=== PATIENT | male | born 1975 ===

== ENCOUNTER 2017-08-13 02:55 | Inpatient (IN) | payer MEDICAID ==
[2017-08-13] MEDS ORDERED: Sodium Chloride 0.9% 1,000 ML IV STA (03:17)
[2017-08-13 03:29] LABS: BASO # 0.1 K/uL (0.0-0.2); BASO % 0.5 % (0.0-2.0); HEMOGLOBIN 15.8 g/dL (12.0-18.0); LYMPH # 1.5 K/uL (1.0-4.3); LYMPH % 12.9 % (20.0-40.0); MEAN CELL VOLUME 86.3 fl (80.0-94.0); MEAN CORPUSCULAR HEMOGLOBIN 30.7 pg (27.0-31.0); MEAN CORPUSCULAR HGB CONC 35.6 g/dL (33.0-37.0); MEAN PLATELET VOLUME 9.4 fl (7.2-11.7); MONO # 0.4 K/uL (0.0-0.8); MONO % 3.4 % (0.0-10.0); NEUT # 9.9 K/uL (1.8-7.0); NEUT % 83.2 % (50.0-75.0); NRBC % 0.1 % (0.0-0.0); RBC 5.14 Mil/uL (4.40-5.90); RED CELL DISTRIBUTION WIDTH 14.7 % (11.5-14.5); WHITE BLOOD COUNT 11.8 K/uL (4.8-10.8)
[2017-08-13 03:38] LABS: BLOOD UREA NITROGEN 11 mg/dl (9-20); CALCIUM 9.7 mg/dL (8.4-10.2); GFR AFRICAN-AMERICAN > 60; GFR NON-AFRICAN AMERICAN > 60
--- NOTE | 2017-08-13 04:39 | ED PDOC ---
HPI: Chest Pain Time Seen by Provider: 08/13/17 03:13 Chief Complaint (Nursing): Chest Pain Chief Complaint (Provider): Chest Pain History Per: Patient (Chest Pain) History/Exam Limitations: intoxication Onset/Duration Of Symptoms: Days (x5) Current Symptoms Are (Timing): Still Present Additional Complaint(s): 41 y/o male with a PMHx of bipolar disorder, HTN, CAD, and multiple stents placed by bank worker presents to the ED complaining of chest pain and palpitations, onset five days ago. Patient admits to drinking a lot of alcohol every day. Patient states he may have done drugs but is not admitting. Patient additionally reports of difficulty breathing at times associated with chest pain and palpitations. Patient states he has also been depressed for a long time. Denies swelling, fever, cough, suicidal ideation, and homicidal ideation. PMD: None Provided Slope Hoist Operator: Dr. Armstrong from [facility], [facility] Past Medical History Reviewed: Historical Data, Nursing Documentation, Vital Signs Vital Signs: Last Vital Signs Temp 98.2 F 08/13/17 17:04 Pulse 140 H 08/13/17 20:38 Resp 16 08/13/17 17:04 BP 145/80 08/13/17 17:04 Pulse Ox 95 08/13/17 20:38 - Medical History PMH: Bipolar Disorder, CAD, Depression, HTN - Surgical History Surgical History: Coronary Stent (x7) - Family History Family History: States: No Known Family Hx - Social History Current smoker - smoking cessation education provided: Yes Alcohol: > 2 Drinks/Day - Home Medications Home Medications: Ambulatory Orders Medication Instructions Recorded Aspirin [Ecotrin] 81 mg PO DAILY 08/13/17 Atorvastatin [Lipitor] 80 mg PO DAILY 08/13/17 Clopidogrel [Plavix] 75 mg PO DAILY 08/13/17 Lisinopril [Zestril] 20 mg PO DAILY 08/13/17 - Allergies Allergies/Adverse Reactions: Allergies Allergy/AdvReac Type Severity Reaction Status Date / Time Penicillins Allergy RASH Verified 08/13/17 03:04 PEDRO Risk Score for UA/NSTEMI - PEDRO Risk Score Age > 64: NO 3 or more CAD Risk Factors: NO Known CAD (Stenosis greater than 50%): YES Aspirin use in past 7 days: NO Severe Angina: NO EKG ST changes greater than 0.5mm: NO Positive Cardiac Marker: NO PEDRO Score: 1 Risk %: 5% Wells Criteria for PE - Wells Criteria for Pulmonary Embolism Clinical Signs and Symptoms of DVT: No P.E is #1 Diagnosis, or Equally Likely: Yes Heart Rate >100: No Immobilization at least 3 days;Surgery previous 4 weeks: No Previous, objectively diagnosed PE or DVT: No Hemoptysis: No Malignancy w/treatment within 6 months, or palliative: No Total Score: 1 Review of Systems ROS Statement: Except As Marked, All Systems Reviewed And Found Negative Constitutional: Negative for: Fever Cardiovascular: Positive for: Chest Pain, Palpitations Respiratory: Positive for: Shortness of Breath. Negative for: Cough Physical Exam - Reviewed Nursing Documentation Reviewed: Yes Vital Signs Reviewed: Yes - Physical Exam Appears: Positive for: In Acute Distress (anxious, agitated at times) Head Exam: Positive for: ATRAUMATIC, NORMOCEPHALIC Skin: Positive for: Normal Color, Warm, Dry Eye Exam: Positive for: EOMI, PERRL, Other (pupils dilated bilaterally) ENT: Positive for: Normal ENT Inspection Neck: Positive for: Normal Cardiovascular/Chest: Positive for: Regular Rate, Rhythm, Tachycardia. Negative for: Murmur Respiratory: Positive for: Normal Breath Sounds. Negative for: Respiratory Distress Gastrointestinal/Abdominal: Positive for: Normal Exam, Soft. Negative for: Tenderness Back: Positive for: Normal Inspection. Negative for: L CVA Tenderness, R CVA Tenderness, Vertebral Tenderness Extremity: Positive for: Normal ROM. Negative for: Pedal Edema, Deformity, Swelling Neurologic/Psych: Positive for: Alert, Oriented. Negative for: Motor/Sensory Deficits - Laboratory Results Result Diagrams: 08/13/17 03:15 08/13/17 03:15 - ECG ECG Rhythm: Positive for: Normal QRS, Normal ST Segment, Sinus Tachycardia Rate: 140 O2 Sat by Pulse Oximetry: 95 (RA) Pulse Ox Interpretation: Normal Medical Decision Making Medical Decision Making: Time: 033 Impression: chest pain and palpitations with tachycardia Differentials include but not limited to SVT, sinus tachycardia, ACS, drug abuse , etoh abuse, intoxication, and acute psychosis. Plan: -- EKG -- Alcohol Serum -- BMP -- Urine Drug Screen -- Troponin I -- CBC with differentials -- CXR One View -- Ativan 1 mg PO -- Ativan 2 mg IV -- Haldol 5 mg IM -- Sodium Chloride UV 1000 mls/hr -- Clinical Researcher -- IV insertion -- 1:1 Observation Time: 0630 CT ANGIO RESULTS FINDINGS: Pulmonary arteries: Pulmonary artery enhancement is less than 130 Hounsfield unit. Pulmonary embolus cannot be evaluated. Aorta: No acute findings. No thoracic aortic aneurysm. Great vessels of aortic arch: There is a normal-variant aberrant right subclavian artery. Lungs: The visualized portions of major airways are patent. Left lower lobe calcified granuloma. No mass.Possible areas of hazy and hyperlucency. Correlation with patient's clinical data is recommended if the reactive airway disease is clinically suspected. There is asymmetric appearance of bilateral hemithoraces. This could represent anatomic variant. Pleural space: Unremarkable. No significant effusion. No pneumothorax. Heart: Small amount of pericardial fluid. Possible cardiomegaly. Thyroid: Mild prominence of thyroid gland. Bones/joints: No acute fracture. No dislocation. Soft tissues: Unremarkable. Lymph nodes: Unremarkable. No enlarged lymph nodes. Liver: Fatty possible nodular liver. Adrenals: Normal adrenal glands. Stomach and bowel: Nonspecific colonic thickening likely due to under distention versus a nonspecific colitis. IMPRESSION: 1. Pulmonary artery enhancement is less than 130 Hounsfield unit. Pulmonary embolus cannot be evaluated. 2. No active disease. Thank you for allowing us to participate in the care of your patient. Dictated and Authenticated by: Cher Fischer MD 08/13/2017 6:30 AM Eastern Time ([place] & [place]) Scribe Attestation: Documented by Kacy Bee acting as a scribe for Dr. Kamala Sherwood MD. Provider Scribe Attestation: All medical record entries made by the Scribe were at my direction and personally dictated by me. I have reviewed the chart and agree that the record accurately reflects my personal performance of the history, physical exam, medical decision making, and the department course for this patient. I have also personally directed, reviewed, and agree with the discharge instructions and disposition. Disposition - Clinical Impression Clinical Impression: Chest pain, Sinus tachycardia, Psychosis, Cocaine abuse - Patient ED Disposition Is Patient to be Admitted: Yes Discussed With Dr.: John Suero Doctor Will See Patient In The: Hospital Counseled Patient/Family Regarding: Studies Performed, Diagnosis - Disposition Disposition Time: 06:30 Condition: FAIR - Pt Status Changed To: Hospital Disposition Of: Inpatient - Admit Certification Admit to Inpatient:: After my assessment, the patient will require hospitalization for at least two midnights. This is because of the severity of symptoms shown, intensity of services needed, and/or the medical risk in this patient being treated as an outpatient. - POA Present On Arrival: None
[2017-08-13] MEDS ORDERED: Sodium Chloride 0.9% 50 ML IV ONE (05:14)
[2017-08-13] MEDS ORDERED: Iodixanol 320 MG/ML 100 ML BOTTLE IV ONE (05:14)
[2017-08-13 06:32] LABS: VENOUS BLOOD GAS BASE EXCESS -1.5 mmol/L (0.0-2.0); VENOUS BLOOD GAS PCO2 47 mmHg (40-60); VENOUS BLOOD GAS PO2 28 mm/Hg (30-55); VENOUS BLOOD PH 7.33 (7.32-7.43)
[2017-08-13 07:32] LABS: BARBITURATES, UR NEGATIVE (NEGATIVE)
[2017-08-13 07:41] LABS: BENZODIAZEPINES, UR NEGATIVE (NEGATIVE); OPIATES, UR NEGATIVE (NEGATIVE); PHENCYCLIDINE, UR NEGATIVE (NEGATIVE)
--- NOTE | 2017-08-13 10:56 | RAD ---
PROCEDURE: CHEST RADIOGRAPH, 1 VIEW HISTORY: chest pain COMPARISON: Chest radiograph dated 02/06/2010 FINDINGS: LUNGS: Clear. PLEURA: No pneumothorax or pleural fluid seen. CARDIOVASCULAR: Normal. OSSEOUS STRUCTURES: Unremarkable. VISUALIZED UPPER ABDOMEN: Normal. OTHER FINDINGS: None. IMPRESSION: No active disease.
[2017-08-13] MEDS: Sodium Chloride 0.9% 1,000 ML IV SCH ×2 (11:23→20:00)
--- NOTE | 2017-08-13 11:31 | CT ---
PROCEDURE: CT Chest with contrast (Pulmonary Angiogram) HISTORY: chest pain COMPARISON: None available. TECHNIQUE: Axial computed tomography images were obtained of the chest in the pulmonary arterial phase of enhancement. Coronal and sagittal reformatted images were created and reviewed. Intravenous contrast dose: 100 mL Visipaque 320 Radiation dose: Total exam DLP = mGy-cm. This CT exam was performed using one or more of the following dose reduction techniques: Automated exposure control, adjustment of the mA and/or kV according to patient size, and/or use of iterative reconstruction technique. FINDINGS: PULMONARY ARTERIES: Suboptimal opacification of the pulmonary arteries. No gross central pulmonary embolus. AORTA: No acute findings. Aberrant right subclavian artery. No thoracic aortic aneurysm. LUNGS: Unremarkable. Left lower lobe calcified granuloma. No nodule, mass or pulmonary consolidation. PLEURAL SPACES: Unremarkable. No effusion or pneumothorax. HEART: Unremarkable. No cardiomegaly. No significant pericardial effusion. LYMPH NODES: No lymphadenopathy. BONES, CHEST WALL: Unremarkable. No fracture or destructive lesion OTHER FINDINGS: Hepatic steatosis. IMPRESSION: Suboptimal opacification of the pulmonary arteries. No gross central pulmonary embolus.
[2017-08-14] MEDS: Sodium Chloride 0.9% 1,000 ML IV SCH (03:00)
[2017-08-14 08:07] LABS: HEMOGLOBIN 14.7 g/dL (12.0-18.0); MEAN CELL VOLUME 87.2 fl (80.0-94.0); MEAN CORPUSCULAR HEMOGLOBIN 31.1 pg (27.0-31.0); MEAN CORPUSCULAR HGB CONC 35.6 g/dL (33.0-37.0); RBC 4.74 Mil/uL (4.40-5.90); RED CELL DISTRIBUTION WIDTH 14.4 % (11.5-14.5); WHITE BLOOD COUNT 10.5 K/uL (4.8-10.8)
[2017-08-14 08:53] LABS: BLOOD UREA NITROGEN 10 mg/dl (9-20); CALCIUM 9.6 mg/dL (8.4-10.2); GFR AFRICAN-AMERICAN > 60; GFR NON-AFRICAN AMERICAN > 60
--- NOTE | 2017-08-14 10:18 | CP.PCM.CON ---
History of Present Illness - History of Present Illness History of Present Illness: Psychiatry consult note CC: "I was having chest pain." HPI: 41 yo male w/ h/o Bipolar disorder, HTN, CAD s/p multiple stents, presents w/ chest pain. Patient reports that he has been drinking heavily for the past 6 days but did not quantify how much. He was previously treated w/ Depakote for Bipolar Disorder but has been non-compliant w/ treatment due to lack of insurance. He reports feeling depressed, anxious and irritable w/ sleep disturbances. He denies acute AH/VH/SI/HI. He is uncertain if he wants inpatient patient psychiatric admission at this time, but he is agreeable to restarting Depakote. PPHx: Bipolar disorder, not compliant w/ treatment or medications PMHx: HTN, CAD s/p multiple stents ALL: PCN SHx: Lives in [place]; +Alcohol and Cocaine Abuse MSE: A + O x 3, calm, cooperative, no acute distress, good eye contact, speech normal, mood/affect- depressed, thought process-linear/coherent, NO AH/VH/SI/HI/ delusions; fair I/J Impression: 41 yo male w/ h/o Bipolar Disorder, Alcohol Use Disorder, Cocaine Use Disorder, presents w/ acute chest pain. -Start Depakote 500 mg PO BID -Patient has capacity to make medical decisions at this time -Can discontinue 1:1 -Treatment for ETOH withdrawal as per [facility] protocol -Patient does not meet criteria for involuntary psychiatric admission at this time Past Patient History - Past Medical History & Family History Past Medical History?: Yes - Past Social History Alcohol: > 2 Drinks/Day - CARDIAC Hx Hypertension: Yes - HEMATOLOGICAL/ONCOLOGICAL Hx AIDS: No Hx Human Immunodeficiency Virus (HIV): No - MUSCULOSKELETAL/RHEUMATOLOGICAL Hx Falls: No - PSYCHIATRIC Hx Bipolar Disorder: Yes Hx Depression: Yes - SURGICAL HISTORY Hx Coronary Stent: Yes (x7) - ANESTHESIA Hx Anesthesia: Yes Meds Allergies/Adverse Reactions: Allergies Allergy/AdvReac Type Severity Reaction Status Date / Time Penicillins Allergy RASH Verified 08/13/17 03:04 - Medications Medications: Current Medications Divalproex Sodium (Depakote Dr(*Bid*)) 500 mg PO BID FABIANA Sodium Chloride (Sodium Chloride 0.9%) 1,000 mls @ 125 mls/hr IV .Q8H FABIANA Stop: 08/14/17 11:02 Last Admin: 08/14/17 03:00 Dose: Not Given Lorazepam (Ativan) 1 mg IVP Q6 PRN PRN Reason: Anxiety Last Admin: 08/13/17 21:47 Dose: 1 mg Results - Vital Signs Recent Vital Signs: Last Vital Signs Temp 97.5 F L 08/14/17 09:00 Pulse 79 08/14/17 09:00 Resp 20 08/14/17 09:00 BP 138/65 08/14/17 09:00 Pulse Ox 97 08/14/17 09:00 - Labs Result Diagrams: 08/14/17 07:20 08/14/17 07:20 Labs: Laboratory Results - last 24 hr 08/14/17 08/14/17 08/14/17 05:48 07:20 07:20 WBC 10.5 RBC 4.74 Hgb 14.7 Hct 41.3 MCV 87.2 MCH 31.1 H MCHC 35.6 RDW 14.4 Plt Count 209 Sodium 139 Potassium 4.1 Chloride 103 Carbon Dioxide 26 Anion Gap 14 BUN 10 Creatinine 0.9 Est GFR ( Amer) > 60 Est GFR (Non-Af Amer) > 60 POC Glucose (mg/dL) 135 H Random Glucose 116 H Calcium 9.6
[2017-08-14 12:50] VITALS: RESP 18
--- NOTE | 2017-08-14 13:06 | CP.PCM.CON ---
History of Present Illness - History of Present Illness History of Present Illness: I was asked to evaluate patient by Dr Suero. Patient is a 41 year old male wit PMH HTN, hypercholesterolemia, CAD s/p PCI in [place] who presents with chest pain. The patient describes substernal chest pain which occurs with exertion. He states symptoms are worse with exertion. He reports using drug recently. The patient states his last stress test was over a year ago. Review of Systems - Constitutional Constitutional: absent: As Per HPI, Anorexia, Chills, Daytime Sleepiness, Excessive Sweating, Fatigue, Fever, Frequent Falls, Headache, Increased Appetite , Lethargy, Malaise, Night Sweats, Snoring, Sleep Apnea, Weight Gain, Weight Loss, Weakness, Other - EENT Eyes: absent: As Per HPI, Blind Spots, Blurred Vision, Change in Vision, Decreased Night Vision, Diplopia, Discharge, Dry Eye, Exophthalmos, Floaters, Irritation, Itchy Eyes, Loss of Peripheral Vision, Pain, Photophobia, Requires Corrective Lenses, Sees Flashes, Spots in Vision, Tunnel Vision, Other Visual Disturbances, Loss of Vision, Other Ears: absent: As Per HPI, Decreased Hearing, Ear Discharge, Ear Pain, Tinnitus, Abnormal Hearing, Disequilibrium, Dizziness, Other Nose/Mouth/Throat: absent: As Per HPI, Epistaxis, Nasal Congestion, Nasal Discharge, Nasal Obstruction, Nasal Trauma, Nose Pain, Post Nasal Drip, Sinus Pain, Sinus Pressure, Bleeding Gums, Change in Voice, Dental Pain, Dry Mouth, Dysphagia, Halitosis, Hoarsness, Lip Swelling, Mouth Lesions, Mouth Pain, Odynophagia, Sore Throat, Throat Swelling, Tongue Swelling, Facial Pain, Neck Pain, Neck Mass, Other - Cardiovascular Cardiovascular: Chest Pain, Dyspnea - Respiratory Respiratory: absent: As Per HPI, Cough, Dyspnea, Hemoptysis, Dyspnea on Exertion , Wheezing, Snoring, Stridor, Pain on Inspiration, Chest Congestion, Excessive Mucous Production, Change in Mucous Color, Pain with Coughing, Other - Gastrointestinal Gastrointestinal: absent: As Per HPI, Abdominal Pain, Belching, Bloating, Change in Bowel Habits, Change in Stool Character, Coffee Ground Emesis, Constipation, Cramping, Diarrhea, Dyspepsia, Dysphagia, Early Satiety, Excessive Flatus, Fecal Incontinence, Heartburn, Hematemesis, Hematochezia, Loose Stools, Melena, Nausea, Odynophagia, Temesmus, Vomiting, Other - Genitourinary Genitourinary: absent: As Per HPI, Change in Urinary Stream, Difficulty Urinating, Dysuria, Flank Pain, Hematuria, Pyuria, Nocturia, Urinary Incontinence, Urinary Frequency, Urinary Hesitance, Urinary Urgency, Voiding Freq/Small Amts, Freq UTI, Hx Renal/Bladder Calculi, Hx /Renal Surgery, Bladder Distension, Other - Musculoskeletal Musculoskeletal: absent: As Per HPI, Abnormal Gait, Arthralgias, Atrophy, Back Pain, Deformity, Joint Swelling, Limited Range of Motion, Loss of Height, Muscle Cramps, Muscle Weakness, Myalgias, Neck Pain, Numbness, Radiating Pain into Limb, Stiffness, Tingling, Other - Integumentary Integumentary: absent: As Per HPI, Acne, Alopecia, Bleeding Lesions, Change in Hair, Change in Nails, Change in Pigmentation, Changing Lesions, Dry Skin, Erythema, Furuncle, Hirsutism, Lesions, New Lesions, Non-Healing Lesions, Photosensitivity, Pruritus, Rash, Skin Pain, Skin Ulcer, Sores, Striae, Swelling , Unusual Bruising, Wounds, Jaundice, Other - Neurological Neurological: absent: As Per HPI, Abnormal Gait, Abnormal Hearing, Abnormal Movements, Abnormal Speech, Behavioral Changes, Burning Sensations, Confusion, Convulsions, Disequilibrium, Dizziness, Numbness, Focal Weakness, Frequent Falls , Headaches, Lack of Coordination, Loss of Vision, Memory Loss, Paresthesias, Radicular Pain, Restless Legs, Sensory Deficit, Syncope, Tingling, Tremor, Vertigo, Weakness, Other Visual Disturbances, Other - Psychiatric Psychiatric: absent: As Per HPI, Abnormal Sleep Pattern, Anhedonia, Anxiety, Auditory Hallucinations, Behavioral Changes, Change in Appetite, Change in Libido, Confusion, Depression, Difficulty Concentrating, Hallucinations, Homicidal Ideation, Hopelessness, Irritability, Memory Loss, Mood Swings, Panic Attacks, Paranoia, Suicidal Ideation, Visual Hallucinations, Tactile Hallucinations, Other - Endocrine Endocrine: absent: As Per HPI, Change in Body Appearance, Change in Libido, Cold Intolorance, Deepening of Voice, Excessive Sweating, Fatigue, Flushing, Heat Intolorance, Increase in Ring/Shoe/Hat Size, Palpitations, Polydipsia, Polyphagia, Polyuria, Other - Hematologic/Lymphatic Hematologic: absent: As Per HPI, Easy Bleeding, Easy Bruising, Lymphadenopathy, Other Past Patient History - Past Medical History & Family History Past Medical History?: Yes - Past Social History Alcohol: > 2 Drinks/Day - CARDIAC Hx Hypertension: Yes - HEMATOLOGICAL/ONCOLOGICAL Hx AIDS: No Hx Human Immunodeficiency Virus (HIV): No - MUSCULOSKELETAL/RHEUMATOLOGICAL Hx Falls: No - PSYCHIATRIC Hx Bipolar Disorder: Yes Hx Depression: Yes - SURGICAL HISTORY Hx Coronary Stent: Yes (x7) - ANESTHESIA Hx Anesthesia: Yes Meds Allergies/Adverse Reactions: Allergies Allergy/AdvReac Type Severity Reaction Status Date / Time Penicillins Allergy RASH Verified 08/13/17 03:04 - Medications Medications: Current Medications Divalproex Sodium (Depakote Dr(*Bid*)) 500 mg PO BID FABIANA Lorazepam (Ativan) 1 mg IVP Q6 PRN PRN Reason: Anxiety Last Admin: 08/13/17 21:47 Dose: 1 mg Physical Exam - Constitutional Appears: Non-toxic - Head Exam Head Exam: NORMAL INSPECTION - Eye Exam Eye Exam: Normal appearance - ENT Exam ENT Exam: Mucous Membranes Moist - Neck Exam Neck exam: Positive for: Full Rom - Respiratory Exam Respiratory Exam: NORMAL BREATHING PATTERN - Cardiovascular Exam Cardiovascular Exam: REGULAR RHYTHM - GI/Abdominal Exam GI & Abdominal Exam: Normal Bowel Sounds - Rectal Exam Rectal Exam: Deferred - Extremities Exam Extremities exam: Negative for: pedal edema - Back Exam Back exam: NORMAL INSPECTION - Neurological Exam Neurological exam: Alert, Oriented x3 - Psychiatric Exam Psychiatric exam: Normal Affect - Skin Skin Exam: Normal Color Results - Vital Signs Recent Vital Signs: Last Vital Signs Temp 98.3 F 08/14/17 12:49 Pulse 64 08/14/17 12:49 Resp 18 08/14/17 12:49 BP 150/92 H 08/14/17 12:49 Pulse Ox 98 08/14/17 12:49 - Labs Result Diagrams: 08/14/17 07:20 08/14/17 07:20 Labs: Laboratory Results - last 24 hr 08/14/17 08/14/17 08/14/17 05:48 07:20 07:20 WBC 10.5 RBC 4.74 Hgb 14.7 Hct 41.3 MCV 87.2 MCH 31.1 H MCHC 35.6 RDW 14.4 Plt Count 209 Sodium 139 Potassium 4.1 Chloride 103 Carbon Dioxide 26 Anion Gap 14 BUN 10 Creatinine 0.9 Est GFR ( Amer) > 60 Est GFR (Non-Af Amer) > 60 POC Glucose (mg/dL) 135 H Random Glucose 116 H Calcium 9.6 - EKG Data EKG Interpreted by: Myself EKG shows normal: Sinus rhythm Assessment & Plan (1) CAD (coronary artery disease) Assessment and Plan: multiple PCI in the past. has high risk features suggestive of unstable angina. will need stress test. Status: Acute (2) Chest pain Assessment and Plan: as above. will schedule stress test. Status: Acute
[2017-08-14 16:04] VITALS: BP 117/56; PULSE 78; TEMP 98; O2SAT 97
[2017-08-14] MEDS ORDERED: Divalproex 500 mg DR(BID formulation) PO SCH (17:00)
--- NOTE | 2017-08-14 19:00 | CP.PCM.HP ---
History of Present Illness - History of Present Illness History of Present Illness: This is a 41 y/o male with hx of bipolar diso HTN CAD, multiple stents, was admitted yesterday for on and off chest pain for 5 to 6 days. he has been drinking alcoholic beverages for the past week. He claims that pain is substernal but not persistent. He denies palpitation or SOB. He follows up with a Technical Artist in [facility]. He was noted to be positive for cocaine. Initial troponin is negative. Currently denies any chest pain. Present on Admission - Present on Admission Any Indicators Present on Admission: No History of Uncontrolled Diabetes: No Urinary Catheter: No Decubitus Ulcer Present: No Review of Systems - Cardiovascular Cardiovascular: Chest Pain, Chest Pain at Rest Past Patient History - Past Medical History & Family History Past Medical History?: Yes - Past Social History Alcohol: > 2 Drinks/Day - CARDIAC Hx Hypertension: Yes - HEMATOLOGICAL/ONCOLOGICAL Hx AIDS: No Hx Human Immunodeficiency Virus (HIV): No - MUSCULOSKELETAL/RHEUMATOLOGICAL Hx Falls: No - PSYCHIATRIC Hx Bipolar Disorder: Yes Hx Depression: Yes - SURGICAL HISTORY Hx Coronary Stent: Yes (x7) - ANESTHESIA Hx Anesthesia: Yes Meds Allergies/Adverse Reactions: Allergies Allergy/AdvReac Type Severity Reaction Status Date / Time Penicillins Allergy RASH Verified 08/13/17 03:04 Physical Exam - Head Exam Head Exam: NORMAL INSPECTION - Eye Exam Eye Exam: Normal appearance - ENT Exam ENT Exam: Mucous Membranes Moist - Respiratory Exam Respiratory Exam: Chest Wall Tenderness, Clear to Auscultation Bilateral - Cardiovascular Exam Cardiovascular Exam: REGULAR RHYTHM - GI/Abdominal Exam GI & Abdominal Exam: Normal Bowel Sounds - Neurological Exam Neurological exam: CN II-XII Intact, Oriented x3 - Psychiatric Exam Psychiatric exam: Normal Mood - Skin Skin Exam: Normal Color Results - Vital Signs Recent Vital Signs: Last Vital Signs Temp 98.0 F 08/14/17 16:03 Pulse 78 08/14/17 16:03 Resp 18 08/14/17 16:03 BP 117/56 L 08/14/17 16:03 Pulse Ox 97 08/14/17 16:03 - Labs Result Diagrams: 08/14/17 07:20 08/14/17 07:20 Labs: Laboratory Results - last 24 hr 08/14/17 08/14/17 08/14/17 05:48 07:20 07:20 WBC 10.5 RBC 4.74 Hgb 14.7 Hct 41.3 MCV 87.2 MCH 31.1 H MCHC 35.6 RDW 14.4 Plt Count 209 Sodium 139 Potassium 4.1 Chloride 103 Carbon Dioxide 26 Anion Gap 14 BUN 10 Creatinine 0.9 Est GFR ( Amer) > 60 Est GFR (Non-Af Amer) > 60 POC Glucose (mg/dL) 135 H Random Glucose 116 H Calcium 9.6 Assessment & Plan (1) CAD (coronary artery disease) Status: Acute (2) Chest pain Status: Acute (3) Cocaine abuse Status: Acute (4) Sinus tachycardia Status: Acute (5) Hyperglycemia Status: Acute - Assessment and Plan (Free Text) Plan: will follow up with Technical Artist follow up troponins will need stress test
--- NOTE | 2017-08-15 10:16 | CARD ---
APPROVED REPORT EKG Measurement Heart [id number] <Conclusion> Sinus tachycardia Left axis deviation Incomplete right bundle branch block Abnormal ECG
== END 2017-08-14 18:01 | disposition left against medical advice (07) | DRG 132 ==
LOC: H.ER 02:55 → H.ERHOLD 06:45 → H.TEL 10:38
PROVIDERS: ADMIT Family Medicine; ATTEND Family Medicine
DX: I25.10 Atherosclerotic heart disease of native coronary artery without angina pectoris (principal); F14.10 Cocaine abuse, uncomplicated; I10 Essential (primary) hypertension; F10.10 Alcohol abuse, uncomplicated; R73.9 Hyperglycemia, unspecified; E78.00 Pure hypercholesterolemia, unspecified; Z95.5 Presence of coronary angioplasty implant and graft; Z91.19 Patient's noncompliance with other medical treatment and regimen; F31.9 Bipolar disorder, unspecified; F17.200 Nicotine dependence, unspecified, uncomplicated; Z88.0 Allergy status to penicillin; Z79.02 Long term (current) use of antithrombotics/antiplatelets; Z79.82 Long term (current) use of aspirin